=== PATIENT | female | born 1985 | race Caucasian/White ===

== ENCOUNTER 2016-08-23 20:49 | Inpatient (IN) | payer OTHER ==
[~2016-08-23] VITALS: Ht 157.5 cm; Wt 97.5 kg
[2016-08-23 23:30] VITALS: BP 125/79
[2016-08-24 00:19] LABS: ABSOLUTE BASOPHIL COUNT 0.1 /CUMM (0.0-0.2); ABSOLUTE EOSINOPHIL COUNT 0 /CUMM (0.0-0.7); ABSOLUTE GRANULOCYTE CT 9.2 /CUMM (1.4-6.5); ABSOLUTE LYMPH COUNT 2.1 /CUMM (1.2-3.4); ABSOLUTE MONOCYTE COUNT 0.6 /CUMM (0.10-0.60); BASOPHIL % 0.7 % (0.0-2.0); EOSINOPHIL % 0.4 % (0-5); GRANULOCYTE % 76.1 % (42.2-75.2); MEAN CORPUSCULAR HGB 28.3 PG (27.0-31.0); MEAN CORPUSCULAR HGB CONC 33.8 G/DL (33.0-37.0); MEAN CORPUSCULAR VOLUME 83.8 FL (81.0-99.0); MEAN PLATELET VOLUME 9.6 FL (7.4-10.4); PLATELET COUNT 210 /CUMM (130-400); RBC DISTRIBUTION WIDTH 14.7 % (11.5-14.5); RED BLOOD CELL CT 4.05 /CUMM (4.20-5.40); WHITE BLOOD CELL COUNT 12.1 /CUMM (4.8-10.8)
--- NOTE | 2016-08-24 00:23 | History & Physical ---
General Information and HPI MD Statement: I have seen and personally examined MIKE DUVALL and documented this H&P. The patient is a 30 year old female at 39 weeks and 1 days gestation who presented with a chief complaint of labor pain]. 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 Denies: chills, fever. EENTM: Denies: blurred vision, double vision, visual changes. Cardiovascular: Denies: chest pain, edema, orthopena. Respiratory: Denies: cough, short of breath. GI: Denies: diarrhea, nausea. Neurological/Psychological: Denies: anxiety, depressed. Exam & Diagnostic Data Last 24 Hrs of Vital Signs/I&O vss Vital Signs Date Time Temp Pulse Resp B/P Pulse O2 O2 Flow FiO2 Ox Delivery Rate 08/23 2330 125/79 Intake & Output 08/24 0800 08/24 0000 08/23 1600 Intake Total Output Total Balance Patient 215 lb Weight Obstetric Exam Wgt Gained During : 49# Pelvimetry: seems adequate Dilation (cm): 3 Effacement (%): 80 Station: -2 Membranes: intact Fluid: unknown Fundal Height (cm): 40 Multiple Gestation? No Contractions: Q 3-4 min Infant #1 - FHR Baseline: 144 Category: 1 Estimated Weight: 3700g Presentation: vtx Patient for Induction? No Labs Blood Type & Rh: O POS Antibody Screen: NEG Hct/Hgb & Platelets #1: 38.5/13.1/247 Hct/Hgb & Platelets #2: 34.3/11.3/201 Rubella: IMM VDRL #1: NR VDRL #2: NR HbsAg: NR HIV #1: NR HIV #2 NR 1 Hr P Group B Strep: POS Initial Ultrasound: 01/20/2016 8W 1D Anatomy Ultrasound: 04/15/2016 NORMAL Ultrasound for EFW: 08/04/2016 53%TILE Genetic Testing: MSAFP NEG Last 24 Hrs of Labs/Linus: Laboratory Tests 08/24/16 0000: Creatinine Pending, Uric Acid Pending, AST Pending, ALT Pending, Lactate Dehydrogenase Pending, CBC w Diff Pending, WBC Pending, RBC Pending, Hgb Pending , Hct Pending, MCV Pending, MCH Pending, RDW Pending, Plt Count Pending, MPV Pending, PUBS MCHC Pending, Urine Color Pending, Urine Clarity Pending, Urine pH Pending, Ur Specific [place] Pending, Urine Protein Pending, Urine Ketones Pending, Urine Nitrite Pending, Urine Bilirubin Pending, Urine Urobilinogen Pending, Ur Leukocyte Esterase Pending, Ur Microscopic Pending, Urine Hemoglobin Pending, Urine Glucose Pending Assessment/Plan Assessment/Plan: iup at 39 WEEKS EARLY LABOR GBS POS HEPc POS NEG MRNA COUNT PLAN ADMIT START ANTIBIOTICS EXPECTANT MANAGEMENT As Ranked By This Provider Problem List: 1. Core Measures/Miscellaneous Venous Thromboembolism VTE Risk Factors: / VTE Contraindications: No Contraindications VTE Diagnosis: No Beta Ina Is Beta Ina a Home Med? No Antibiotics Is Patient on Antibiotics? No
--- NOTE | 2016-08-24 07:54 | PN- OBGYN ---
Surgical Brief Attending Note Brief Attending Note: Assumed care of patient at 0730. She is a 30 year old @ 39+1 presented in early labor last night. 2cm upon initial presentation. Last examined by RN at 0500 and reportedly is 5cm. remarkable for GBS + and she is on prophylaxis. H/O Hep C that was treated. neg hep C screening and normal LFTs during . 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 VSSAF FHTs 120s Cat 1. [place] q5min Cvx 5/80/-1. AROm with minimal fluid a/p 30 year old @ 39+1 weeks. FHT Cat 1. Active labor. No cervical change at 5cm. Ctx appear to be inadequate. Membranes ruptured and pitocin augmentation ordered. Continue GBS prophylaxis. Anticipate .
--- NOTE | 2016-08-24 10:45 | PN- OBGYN ---
Surgical Brief Attending Note Brief Attending Note: Pt examined by RN around 930 and was about 5cm. Just rechecked by RN now and was 5-6 cm. Pt comfortablewith epidural VSSAF FHTs 120-130s cat 1. [place]: q2-3 min cvx 5-6/80/-1 IUPC placed a/p 30 year old @ 39+1. Active labor. FHT reassuring. pit augmentation. minimal cervical change since early am. IUPC placed. Continue GBS prophylaxis. Anticipate .
--- NOTE | 2016-08-24 14:27 | PN- OBGYN ---
Surgical Brief Attending Note Brief Attending Note: Patient starting to get uncomfortable. pelvic pressure VSSAF FHTs 120-130s cat 1. +STV, +LTV, occ variables TOCO pit at 7mu/min, ctxs q3min cvx anterior lip/0 30 year old @ 39+1 weeks. Active labor. FHTs reassuring. continue GBS prophylaxis. Anticipte .
--- NOTE | 2016-08-24 19:46 | Labor & Delivery Summary ---
Delivery Summary Vaginal Delivery: Vaginal: spontaneous Episiotomy/Lacerations: Episiotomy/Lacerations: 2nd degree Repair: 3-0 polysorb Anesthesia: epidural, local nesacaine Placenta: Placenta: spontanteous, normal, 3 vessel Anesthesia: block Baby's Weight: 8.1 Additional Comments: Pt progressed to anterior lip/ fully and labored down. pushed x 1 hour and delivered head without difficulty. meconium noted. shoulders and body delivered without difficulty. Infant's nose and mouth bulb suctioned. Infant dried and stimulated. Good cry noted. Infant placed on maternal abdomen. Cord clamped and cut. 2nd degree lac repaired. placenta delivered.
[2016-08-25 08:58] LABS: ABSOLUTE BASOPHIL COUNT 0.1 /CUMM (0.0-0.2); ABSOLUTE EOSINOPHIL COUNT 0 /CUMM (0.0-0.7); ABSOLUTE GRANULOCYTE CT 11.1 /CUMM (1.4-6.5); ABSOLUTE LYMPH COUNT 1.9 /CUMM (1.2-3.4); ABSOLUTE MONOCYTE COUNT 0.8 /CUMM (0.10-0.60); BASOPHIL % 0.6 % (0.0-2.0); EOSINOPHIL % 0.3 % (0-5); GRANULOCYTE % 79.7 % (42.2-75.2); MEAN CORPUSCULAR HGB 28.1 PG (27.0-31.0); MEAN CORPUSCULAR HGB CONC 33.2 G/DL (33.0-37.0); MEAN CORPUSCULAR VOLUME 84.6 FL (81.0-99.0); MEAN PLATELET VOLUME 9.2 FL (7.4-10.4); PLATELET COUNT 169 /CUMM (130-400); WHITE BLOOD CELL COUNT 13.9 /CUMM (4.8-10.8)
[2016-08-25 09:09] LABS: HEMATOCRIT 22.6 % (37-47); RED BLOOD CELL CT 2.67 /CUMM (4.20-5.40)
--- NOTE | 2016-08-25 10:59 | PN- Post Delivery/GYN ---
Subjective Subjective: feeling good c/o LBP bleeding is light Review of Systems Constitutional: Denies: chills, fever, weakness. EENTM: Denies: blurred vision, double vision, visual changes. Cardiovascular: Denies: chest pain. Respiratory: Denies: cough, short of breath. Gastrointestinal: Denies: abdominal pain, bloating, distention, nausea, vomiting. Genitourinary: Denies: dysuria. Musculoskeletal: Reports: back pain. Neurological/Psychological: Denies: anxiety, depressed, headache, numbness, paresthesia, tingling. Hematologic/Endocrine: Denies: bleeding. Objective Last 24 Hrs of Vital Signs/I&O vss Physical Exam General Appearance Alert, Oriented X3, Cooperative, No Acute Distress Cardiovascular Regular Rate Lungs Clear to Auscultation Abdomen Soft, fundus firm Neurological Normal Speech, Strength at 5/5 X4 Ext, Normal Tone Pelvic (FEMALE) lochia serosanganous Current Medications: Current Medications Sig/Jose Start time Last Medication Dose Route Stop Time Status Admin Acetaminophen 650 MG Q4P PRN 08/24 1929 AC PO Butorphanol Tartrate 1 MG Q4P PRN 08/23 2329 AC 08/24 IV 0019 Butorphanol Tartrate 1 MG Q4P PRN 08/23 2329 AC 08/24 IM 0019 Chloroprocaine HCl 30 ML ONCE ONE 08/24 1929 DC 08/24 SC 08/24 1930 1840 Docusate Sodium 100 MG BID PRN 08/24 1929 AC PO Hydroxyzine HCl 50 MG AT BEDTIME NEED.. 08/24 1929 AC PO Ibuprofen 800 MG .STK-MED ONE 08/25 0242 DC PO 08/25 0243 Ibuprofen 800 MG Q6P PRN 08/24 1929 AC 08/25 PO 0940 Ketorolac 30 MG ONCE ONE 08/24 1929 DC 08/24 Tromethamine IV 08/24 1930 1900 Lactated Ringer's 1,000 ML Q8H 08/23 2329 AC 08/24 IV 1205 Magnesium Hydroxide 30 ML DAILY PRN 08/24 1929 DC PO 08/25 1001 Oxycodone/ 1 TAB Q3P PRN 08/24 1929 AC 08/25 Acetaminophen PO 0446 Oxytocin 20 UNITS Q5H 08/24 1929 DC 08/24 Lactated Ringer's 1,000 ML IV 08/25 0029 1855 Oxytocin 30 UNITS PER PROTOCL 08/24 0800 DC 08/24 Lactated Ringer's 500 ML IV 08/25 0759 0757 Penicillin G 2.5 MU Q4H 08/24 0400 AC 08/24 Potassium IV 1606 Dextrose/Water 100 ML Senna 374 MG AT BEDTIME NEED.. 08/24 1929 AC PO 08/25 1930 Last 24 Hrs of Labs/Linus: Laboratory Tests 08/25/16 0610: CBC w Diff NO MAN DIFF REQ, RBC 2.67 L, MCV 84.6, MCH 28.1, RDW 15.0 H, MPV 9.2, Gran % 79.7 H, Lymphocytes % 13.7 L, Monocytes % 5.7, Eosinophils % 0.3, Basophils % 0.6, Absolute Granulocytes 11.1 H, Absolute Lymphocytes 1.9, Absolute Monocytes 0.8 H, Absolute Eosinophils 0, Absolute Basophils 0.1, PUBS MCHC 33.2 Assessment/Plan Assessment/Plan signifigant drop in HCT no active vaginal bleeding plan repeat HCT in am still unsure re circ. Problem List: 1. Attending MD Review Statement Attending Statement Attending MD Statement: examined this patient, discussed with family, discussed with nursing
[2016-08-25] MEDS ORDERED: IBUPROFEN800 M1 PO (13:26)
[2016-08-25] MEDS ORDERED: FERRO-TIME325 M1 PO (19:05)
[2016-08-25] MEDS ORDERED: DOCUSATE SODIU100 M3 PO (19:05)
[2016-08-25] MEDS ORDERED: C-NATE DHA SOF1 EACH PO (19:05)
[2016-08-26 08:39] LABS: ABSOLUTE BASOPHIL COUNT 0 /CUMM (0.0-0.2); ABSOLUTE EOSINOPHIL COUNT 0.2 /CUMM (0.0-0.7); ABSOLUTE MONOCYTE COUNT 0.6 /CUMM (0.10-0.60)
[2016-08-26 08:48] LABS: ABSOLUTE GRANULOCYTE CT 7.9 /CUMM (1.4-6.5); ABSOLUTE LYMPH COUNT 2.3 /CUMM (1.2-3.4); BASOPHIL % 0.4 % (0.0-2.0); EOSINOPHIL % 1.8 % (0-5); GRANULOCYTE % 71.9 % (42.2-75.2); HEMATOCRIT 22.2 % (37-47); MEAN CORPUSCULAR HGB 28.4 PG (27.0-31.0); MEAN CORPUSCULAR HGB CONC 33.5 G/DL (33.0-37.0); MEAN CORPUSCULAR VOLUME 84.7 FL (81.0-99.0); PLATELET COUNT 184 /CUMM (130-400); RBC DISTRIBUTION WIDTH 14.6 % (11.5-14.5); RED BLOOD CELL CT 2.62 /CUMM (4.20-5.40)
[2016-08-26] MEDS ORDERED: PERCOCET 5-3251 EACH PO (11:28)
--- NOTE | 2016-08-26 11:56 | PN- Post Delivery/GYN ---
Subjective Subjective: READY TO GO HOME - SIGNIFICANT TAILBONE PAIN SINCE DELIVERY- WITH PUSHING SHE "HEARD A POP". IS ABLE TO WALK BUT IS IN DISCOMFORT. NEEDS A SMALL RX FOR PERCOCET IN ADDITION TO THE MOTRIN - AGREES TO OUT PATIENT PHYSICAL THERAPY Review of Systems: NEG FOR CARDIAC GI OR PULMONARY COMPLAINTS Objective Last 24 Hrs of Vital Signs/I&O AFEBRILE VSS Physical Exam General Appearance Alert, Oriented X3, Cooperative, Mild Distress Skin No Significant Lesion Cardiovascular Regular Rate Lungs Clear to Auscultation Abdomen Normal Bowel Sounds, Soft, No Tenderness, No Hepatospenomegaly, UTERUS 3 FB BELOW UMBILICUS NONTENDER, AVGE LOCHIA Neurological Normal Gait, Normal Speech Extremities No Tenderness/Swelling Reproductive (FEMALE) Normal female genitalia, AVGE LOCHIA Current Medications: Current Medications Sig/Jose Start time Last Medication Dose Route Stop Time Status Admin Acetaminophen 650 MG Q4P PRN 08/24 1929 AC PO Butorphanol Tartrate 1 MG Q4P PRN 08/23 2329 08/24 IV 0019 Butorphanol Tartrate 1 MG Q4P PRN 08/23 2329 08/24 IM 0019 Docusate Sodium 100 MG BID PRN 08/24 1929 AC PO Hydroxyzine HCl 50 MG AT BEDTIME NEED.. 08/24 1929 AC PO Ibuprofen 800 MG .STK-MED ONE 08/25 2252 DC PO 08/25 2253 Ibuprofen 800 MG .STK-MED ONE 08/25 1527 DC PO 08/25 1528 Ibuprofen 800 MG Q6P PRN 08/24 1929 08/26 PO 0528 Lactated Ringer's 1,000 ML Q8H 08/23 233 08/24 IV 1205 Oxycodone/ 2 TAB Q4P PRN 08/25 2044 AC 08/25 Acetaminophen PO 204 Oxycodone/ 1 TAB Q3P PRN 08/24 1929 08/26 Acetaminophen PO 0528 Penicillin G 2.5 MU Q4H 08/24 040 08/24 Potassium IV 1606 Dextrose/Water 100 ML Senna 374 MG AT BEDTIME NEED.. 08/24 1929 DC PO 08/25 1930 Last 24 Hrs of Labs/Linus: Laboratory Tests 08/26/16 0820: CBC w Diff NO MAN DIFF REQ, RBC 2.62 L, MCV 84.7, MCH 28.4, RDW 14.6 H, MPV 9.0, Gran % 71.9, Lymphocytes % 20.8, Monocytes % 5.1, Eosinophils % 1.8, Basophils % 0.4, Absolute Granulocytes 7.9 H, Absolute Lymphocytes 2.3, Absolute Monocytes 0.6, Absolute Eosinophils 0.2, Absolute Basophils 0, PUBS MCHC 33.5 Assessment/Plan Assessment/Plan STABLE PPD #2 ANEMIA: IS WELL COMPENSATED, WILL NEED PN VITS/ IRON/ COLACE PRN POST DELIVERY TAIL BONE PAIN - MOTRIN / PERCOCET / OUT PT PHYSICAL THERAPY REFERRAL DISCHARGE HOME Problem List: 1. 2. Anemia due to acute blood loss 3. Term of male 4. Vaginal delivery 5. Coccygeal pain, acute Attending MD Review Statement Attending Statement Attending MD Statement: examined this patient, discussed with family, reviewed EMR data (avail), discussed with nursing Attending Assessment/Plan: LUCY MELÉNDEZ
== END 2016-08-26 13:47 | DRG 775 ==
LOC: CBCO 20:49 → GNO 23:22 → CBCO 08-30 08:00
PROVIDERS: Obstetrics & Gynecology; ADMIT Obstetrics & Gynecology
PROC: 10E0XZZ Delivery of Products of Conception, External Approach (ICD-10-PCS; principal; 2016-08-24)
PROC: 0KQM0ZZ Repair Perineum Muscle, Open Approach (ICD-10-PCS; principal; 2016-08-24)
DX: O70.1 Second degree perineal laceration during delivery (principal); D62 Acute posthemorrhagic anemia; Z37.0 Single live birth; Z3A.39 39 weeks gestation of pregnancy; O99.824 Streptococcus B carrier state complicating childbirth; B19.20 Unspecified viral hepatitis C without hepatic coma
CPT/HCPCS: GNOP; GNOS; 36415; 81001; 88307; G0463; J1885; J7120